=== PATIENT | male | born 1935 | race Caucasian/White ===

== ENCOUNTER 2018-05-02 09:02 | Observation (INO) ==
--- NOTE | 2018-05-02 10:16 | Diag Imaging Result Doc PS360 ---
EXAM: CT HEAD W/O CONTRAST 05/02/2018 HISTORY: fall TECHNIQUE: This exam was performed using automated exposure control, adjustment of mA or kV according to patient size, and/or use of iterative reconstruction technique. COMMENT: There are calcifications in the vertebral and internal carotid arteries bilaterally. There is no evidence of mass effect, bleed, abnormal extra-axial fluid collection, or hydrocephalus. There is a periventricular lucency in the subependymal white matter of the right frontal lobe which was also present at the time the previous study of 08/03/2014. There is mucus retention cyst formation in the maxillary sinuses bilaterally. Otherwise the visualized paranasal sinuses are clear. The calvarium is intact. There is a small scalp hematoma in the posterior left frontal region, and another laterally on the right side over the parietal bone. IMPRESSION: No evidence of acute intracranial disease. Bilateral scalp hematomata. The findings were discussed with Carlos Jeong MD at 05/02/2018 10:13 AM. Electronically signed by Tung Morales 05/02/2018 10:13 AM
[2018-05-02 13:16] LABS: BASO# 0.02 X1000 (0.0-0.2); BASO% 0.3 % (0.0-0.8); EOS% 1.3 % (0.0-10.0); HEMATOCRIT 30.4 % (42.0-52.0); HEMOGLOBIN 9.9 g/dL (14.0-18.0); LYMPH# 0.69 X1000 (1.2-3.4); LYMPH% 9.2 % (20.5-51.1); MCH 30.6 PG (27-31); MCHC 32.6 g/dL (33-37); MCV 93.8 FL (81-99); MONO# 0.35 X1000 (0.11-0.59); MONO% 4.7 % (1.7-9.3); MPV 11.9 FL (7.4-10.4); NEUT# 6.36 X1000 (1.4-6.5); NEUT% 84.5 % (42.2-75.2); PLT 163 X1000 (130-400); RBC 3.24 XMIL (4.7-6.1); RDW 13.5 % (11.5-14.5); WBC 7.52 X1000 (4.8-10.8)
[2018-05-02 13:27] LABS: INR 1.03; PROTIME 14.3 Seconds (11.0-16.0)
[2018-05-02 13:28] LABS: PTT 27.1 Seconds (22.3-41.8)
[2018-05-02 13:32] LABS: CALCIUM 8.7 mg/dL (8.8-10.2); CREATININE 2.1 mg/dL (0.7-1.2); POTASSIUM 4.2 mmol/L (3.5-5.1); TOTAL BILIRUBIN 0.44 mg/dL (0.20-1.00)
--- NOTE | 2018-05-02 14:55 | Diag Imaging Result Doc PS360 ---
EXAM: CHEST-2 VIEWS 05/02/2018 HISTORY: elevated trop TECHNIQUE: Two views the chest COMMENT: There is no evidence of acute cardiac or pulmonary disease. There is a pacemaker on the right. Otherwise there has been no significant change in the appearance of the chest since 08/03/2014. IMPRESSION: No evidence of acute disease. Electronically signed by Tung Morales 05/02/2018 2:53 PM
[2018-05-02] MEDS ORDERED: TYLENOL PO PRN (16:25)
[2018-05-02] MEDS ORDERED: ZOFRAN IV PRN (16:25)
--- NOTE | 2018-05-02 17:10 | PROVIDER DOCUMENTATION ---
This chart was entered by Dorita Miranda Scribe, acting as scribe for Ivelisse Sanz MD. HPI-Head Injury - General Chief Complaint: Fall Stated Complaint: FALL Time Seen by Provider: 05/02/18 12:07 Source: patient Allergies/Adverse Reactions: Patient Allergies Allergy/AdvReac Type Severity Reaction Status Date / Time simvastatin [From Zocor] Allergy "Protein Verified 05/02/18 13:10 weeping out of the muscle" per patient. Home Medications: Home Medication List Medication Instructions Recorded Confirmed Last Taken Type Allopurinol 300 mg PO DAILY 08/03/14 05/02/18 05/01/18 History Alprazolam [Xanax] 0.25 mg PO QHS 08/03/14 05/02/18 05/01/18 History Aspirin 81 mg PO DAILY 08/03/14 05/02/18 05/01/18 History Atorvastatin Calcium [Lipitor] 40 mg PO QHS 08/03/14 05/02/18 05/01/18 History Glipizide E.r. [Glucotrol Xl] 5 mg PO DAILY 08/03/14 05/02/18 05/01/18 History Terazosin [Hytrin] 1 tab PO DAILY 08/22/14 05/02/18 05/01/18 History Valsartan 320 mg PO DAILY 08/05/17 05/02/18 05/01/18 History Hydrocodone/APAP 7.5 mg/325 mg 1 each PO Q4H PRN #12 tablet 08/20/17 05/02/18 Rx [[place]-7.5] Sulfamethoxazole/Tmp D.s. [Septra 1 each PO BID #14 tablet 08/20/17 05/02/1809/12 Rx Ds] - History of Present Illness-Head Injury Nature of Presenting Problem: 82yom with hx CABG, CVA (with R-sided weakness resulting), colon cancer, and pacemaker c/o headache, feeling tired, and drowsiness post-head injury since this morning. He reports feeling generalized weakness and feeling sick" this morning and fell and hit his head on the countertop. He reports loc for approximately 4-5 minutes. He denies fever, chills, nausea, vomiting, diarrhea, cp, and sob. The patient's is at bedside. Head Injury Location: reports: other (L forehead) Other injuries associated with incident:: reports: none Quality of Pain: reports: aching Severity: reports: mild Onset/Duration: reports: this morning Timing: reports: still present, constant Method of Injury: reports: fell Any recent trauma/injury?: reports: minor Loss of Consciousness: prolonged (minutes) Modifying Factors: improves with: nothing Injury Associated Symptoms: reports: headaches. denies: chest pain, nausea, shortness of breath, vomiting Locality of Occurance: Home Similar Symptoms Previously?: No Recently seen or treated by another doctor?: No Review of Systems - Adult - REVIEW OF SYSTEMS - ADULT Constitutional: denies: chills, fever Eyes: denies: discharge, dry eyes Ears, Nose, Mouth & Throat: denies: ear discharge, ear pain Cardiovascular: denies: chest pain, palpitations Respiratory: denies: cough, shortness of breath Gastrointestinal: denies: abdominal pain, diarrhea, nausea, vomiting Genitourinary: denies: dysuria, hematuria Musculoskeletal: denies: back pain, neck pain Integumentary: reports: no symptoms reported Neurological: reports: headache/migraines. denies: dizziness/vertigo Psychiatric: reports: no symptoms reported Endocrine: reports: no symptoms reported Hematologic/Lymphatic: reports: no symptoms reported Allergic/Immunologic: reports: no symptoms reported All Other Systems: Reviewed and Negative Past History - Adult - PAST MEDICAL HISTORY-ADULT Review of Records: reports: Old Records Reviewed, Nursing Assessment Review, Medications Reviewed Cardiovascular: reports: HTN, hyperlipidemia Gastrointestinal: reports: cancer (colon) Genitourinary: reports: kidney stones Neurological: reports: CVA Endocrine/Immune: reports: Diabetes - PRIOR SURGERIES/PROCEDURES Surgical/Procedure History: reports: CABG, tonsillectomy, orthopedic (extremity ) (R knee), other (bypass Sx, colon Sx) - IMMUNIZATION STATUS Childhood Immunizations: UTD Flu Vaccine: UTD - FAMILY HISTORY Family History: reviewed, not pertinent - SOCIAL HISTORY Smoking: non-smoker Substance Use: denies Living Situation: family Physical Exam- Neurological - Physical Exam-Neuro Initial Vital Signs Reviewed: Yes General Appearance: alert, no apparent distress Eye Exam: bilateral eye: normal inspection (2mm ), PERRL, EOMI HENMT: moist mucous membranes, normal ENT inspection Head Injury: ecchymosis, tenderness, other (hematoma L forehead, dried blood on forehead). negative: active bleeding, Sherman's Sign Neck: non-tender, supple Respiratory: lungs clear, normal breath sounds Cardiovascular: regular rate, rhythm, no murmur Abdominal Exam: non tender, soft Extremity: non-tender, no pedal edema, other (R-sided weakness from previous CVA ) marketing director Exam: normal speech, PERRL, other (pt is hard of hearing, pt requires hearing aids) Neurologic: grossly normal, other (R-sided weakness, previous CVA) Integumentary: normal color, warm/dry Psych/Mental Status: normal mood/affect, normal thought content, normal thought process, oriented x 3 - Glascow Coma Scale Best Eye Response: (4) open spontaneously Best Verbal Response: (5) oriented Best Motor Response: (6) obeys commands Total Glascow Score: 15 Progress - PLAN OF CARE/RESULTS Progress/Plan/Lab Results: Vital Signs - 8 hr 05/02/18 09:31 Temperature 98.3 F Pulse Rate 93 H Respiratory Rate 18 Blood Pressure 140/72 O2 Sat by Pulse Oximetry 100 Laboratory Results - last 24 hr 05/02/18 05/02/18 05/02/18 10:32 10:32 10:32 WBC 7.52 RBC 3.24 L Hgb 9.9 L Hct 30.4 L MCV 93.8 MCH 30.6 MCHC 32.6 L RDW Std Deviation 13.5 Plt Count 163 MPV 11.9 H Immature Gran % (Auto) 0.0 Neut % (Auto) 84.5 H Lymph % (Auto) 9.2 L [place] % (Auto) 4.7 Eos % (Auto) 1.3 Baso % (Auto) 0.3 Immature Gran # (Auto) 0.00 Neut # (Auto) 6.36 Lymph # (Auto) 0.69 L [place] # (Auto) 0.35 Eos # (Auto) 0.10 Baso # (Auto) 0.02 PT 14.3 INR 1.03 PTT (Actin FS) 27.1 Sodium 140 Potassium 4.2 Chloride 105 Carbon Dioxide 21 L Anion Gap 14 BUN 35 H Creatinine 2.1 H Estimated GFR/1.73 m2 31 BUN/Creatinine Ratio 17 Glucose 175 H POC Glucose Calculated Osmolality 292 Calcium 8.7 L Total Bilirubin 0.44 AST 16 ALT 10 Alkaline Phosphatase 75 Creatine Kinase 118 Troponin T Hej-E-Oibdjvscwxp Pept Total Protein 6.0 L Albumin 4.0 Globulin 2.0 Albumin/Globulin Ratio 2.0 05/02/18 05/02/18 05/02/18 10:32 10:32 12:53 WBC RBC Hgb Hct MCV MCH MCHC RDW Std Deviation Plt Count MPV Immature Gran % (Auto) Neut % (Auto) Lymph % (Auto) [place] % (Auto) Eos % (Auto) Baso % (Auto) Immature Gran # (Auto) Neut # (Auto) Lymph # (Auto) [place] # (Auto) Eos # (Auto) Baso # (Auto) PT INR PTT (Actin FS) Sodium Potassium Chloride Carbon Dioxide Anion Gap BUN Creatinine Estimated GFR/1.73 m2 BUN/Creatinine Ratio Glucose POC Glucose 152 H D Calculated Osmolality Calcium Total Bilirubin AST ALT Alkaline Phosphatase Creatine Kinase Troponin T 0.191 H Dwl-U-Timpqrtubxj Pept 1651 H Total Protein Albumin Globulin Albumin/Globulin Ratio 05/02/18 15:30 WBC RBC Hgb Hct MCV MCH MCHC RDW Std Deviation Plt Count MPV Immature Gran % (Auto) Neut % (Auto) Lymph % (Auto) [place] % (Auto) Eos % (Auto) Baso % (Auto) Immature Gran # (Auto) Neut # (Auto) Lymph # (Auto) [place] # (Auto) Eos # (Auto) Baso # (Auto) PT INR PTT (Actin FS) Sodium Potassium Chloride Carbon Dioxide Anion Gap BUN Creatinine Estimated GFR/1.73 m2 BUN/Creatinine Ratio Glucose POC Glucose 140 H Calculated Osmolality Calcium Total Bilirubin AST ALT Alkaline Phosphatase Creatine Kinase Troponin T Tmz-R-Bakhtwxtdxx Pept Total Protein Albumin Globulin Albumin/Globulin Ratio Orders Category Date Time Status Admit - [facility] Routine AdmDCTranf 05/02/18 16:25 Active Activity - Bedrest with BSC ORDERED Care 05/02/18 16:25 Active Activity - Up with Assistance ORDERED Care 05/02/18 16:25 Active Apply Mechanical Device [QM] ORDERED Care 05/02/18 16:25 Active Cardiac Monitoring DIRECTED Care 05/02/18 12:56 Inactive Finger Stick Blood Sugar (ED) DIRECTED Care 05/02/18 12:56 Completed Intake and Output-Strict ORDERED Care 05/02/18 16:25 Active Orthostatic Vital Signs NOW Care 05/02/18 16:25 Active Saline Loc NOW Care 05/02/18 12:56 Inactive Vital Signs Order Q 8-HR ASSESS Care 05/02/18 16:25 Active Z-Document. for Tele Applied ORDERED Care 05/02/18 16:25 Active Heart Healthy Diet Diet 05/02/18 16:[address] HEAD W/O CONTRAST [CT] Stat Exams 05/02/18 09:28 Completed XRAY HIP UNILATERAL RT [RAD] Routine Exams 05/02/18 16:25 Taken cxr [CHEST-2 VIEWS] [RAD] Stat Exams 05/02/18 14:31 Completed CBC WITH DIFF [HEME] Routine Lab 05/03/18 06:00 Ordered CBC WITH ELECTRONIC DIFF [HEME] Stat Lab 05/02/18 10:32 Completed CK PROFILE [SP CHEM] Q6HR Lab 05/02/18 20:00 Ordered CK PROFILE [SP CHEM] Q6HR Lab 05/03/18 02:00 Ordered CK PROFILE [SP CHEM] Stat Lab 05/02/18 10:32 Completed COMPREHENSIVE METABOLIC PANEL [CHEM] Routine Lab 05/03/18 06:00 Ordered COMPREHENSIVE METABOLIC PANEL [CHEM] Stat Lab 05/02/18 10:32 Completed PRO B-NATRIURETIC PEPTIDE Stat Lab 05/02/18 10:32 Completed PROTIME WITH INR [COAG] Stat Lab 05/02/18 10:32 Completed PTT [COAG] Stat Lab 05/02/18 10:32 Completed TROPONIN T Stat Lab 05/02/18 10:32 Completed TROPONIN T Stat Lab 05/02/18 16:53 Received TSH Routine Lab 05/03/18 06:00 Ordered 0.9% Sodium Chloride Inj [Ns] 1,000 ml Med 05/02/18 16:25 Active IV 75 mls/hr ATORVAstatin [Lipitor] Med 05/02/18 21:00 Active 40 mg PO QHS Acetaminophen [Tylenol] Med 05/02/18 16:25 Active 650 mg PO Q6H PRN PRN Allopurinol [Zyloprim] Med 05/03/18 09:00 Active 300 mg PO DAILY Aspirin Med 05/03/18 09:00 Active 81 mg PO DAILY Hydrocodone/APAP 7.5 mg/325 mg [[place]-7.5] Med 05/02/18 16:25 Active 1 each PO Q4H PRN PRN Ondansetron [Zofran] Med 05/02/18 16:25 Active 4 mg IV Q4H PRN PRN Terazosin [Hytrin] Med 05/03/18 09:00 Active 5 mg PO DAILY Valsartan [Diovan] Med 05/03/18 09:00 Active 320 mg PO DAILY Telemetry [OM.EQ] Routine Oth 05/02/18 16:25 Active Carotid Ultrasound Routine Ther 05/02/18 16:25 Ordered EKG [EKG] Stat Ther 05/02/18 12:56 Ordered Echo Spec/Color Dop W/O Contra Routine Ther 05/02/18 16:25 Ordered Physical Therapy Eval/Treatment [OM.PT] Routine Ther 05/02/18 16:25 Active Transfer/Admit Order [TRANSFER] Routine Transfer 05/02/18 15:35 Completed Result Diagrams: 05/02/18 10:32 05/02/18 10:32 - XRAY 1 XRAY Study: Chest Impression: Normal (COMMENT: There is no evidence of acute cardiac or pulmonary disease. There is a pacemaker on the right. Otherwise there has been no significant change in the appearance of the chest since 08/03/2014. IMPRESSION : No evidence of acute disease.) - CT/MRI 1 CT Study: Head Impression: Abnormal (COMMENT: There are calcifications in the vertebral and internal carotid arteries bilaterally. There is no evidence of mass effect, bleed, abnormal extra-axial fluid collection, or hydrocephalus. There is a periventricular lucency in the subependymal white matter of the right frontal lobe which was also present at the time the previous study of 08/03/2014. There is mucus retention cyst formation in the maxillary sinuses bilaterally. Otherwise the visualized paranasal sinuses are clear. The calvarium is intact. There is a small scalp hematoma in the posterior left frontal region, and another laterally on the right side over the parietal bone. IMPRESSION: No evidence of acute intracranial disease. Bilateral scalp hematomata. The findings were discussed with Carlos Jeong MD at 05/02/2018 10:13 AM.) - CONSULTS/PCP/HOSPITALIST Notification #1 *Consult/PCP/Hospitalist*: MARIA FERNANDA Centeno Time Discussed: 14:23 Consult Disposition: Admit Departure - Departure Date of Disposition Decision: 05/02/18 Time of Disposition Decision: 17:10 DIAGNOSIS: Acute kidney injury, Troponin level elevated, Status post fall, Weakness Scalp hematoma Qualifiers: Encounter type: initial encounter Qualified Code(s): S00.03XA - Contusion of scalp, initial encounter Disposition: HOME 01 Certified Medical Emergency: Emergent Condition: Stable - Critical Care Note This patient required my direct & personal management of CC.: No Attestation - Physician/ FÁTIMA Attestation Patient care was provided by Advanced Practice Provider:: No The physician spent face to face time with patient:: Yes Advanced Practice Provider documentation review:: Supervising physician onsite and consulted in the evaluation and care of this patient. The physician did have a face to face encounter with the patient. This chart was documented by the indicated scribe, (Dorita Miranda, George) and accurately reflects the services I performed and decisions made by me, Ivelisse Sanz MD, as attested by the provider's signature.
--- NOTE | 2018-05-02 17:15 | Diag Imaging Result Doc PS360 ---
EXAM: XRAY HIP UNILATERAL RT 05/02/2018 HISTORY: fall. hip pain TECHNIQUE: Right hip two views COMMENT: There is no evidence of fracture or dislocation. The joint spaces well-maintained. There is some sclerosis of the superior cortex of the femoral head. There are no previous studies. IMPRESSION: No evidence of acute bony disease. Electronically signed by Tung Morales 05/02/2018 5:12 PM
--- NOTE | 2018-05-02 17:41 | HISTORY AND PHYSICAL ---
PRIMARY CARE PROVIDER: Dr. Blayne Reyes. PRIMARY HAND MARKER: Dr. Damian Clemons. CHIEF COMPLAINT: Passed out. HISTORY OF PRESENT ILLNESS: Mr. Carlos Michel is an 82-year-old male with a medical history of sick sinus syndrome with permanent pacemaker, atrial fibrillation on aspirin therapy, coronary artery disease with CABG x3 in 2009, stroke about 25 to 26 years ago, which left him paralyzed on his right side, and history of colon cancer, who presents with complaints of passing out. Around 0830 this morning, he states he was standing at the sink, had his coffee ready and his cereal ready, he was moving it down the counter when he passed out. He did not have any presyncopal type symptoms. He states he just passed out and his , who is at the bedside, did not witness this but states that he has really not started coming around until this afternoon. He was brought via EMS. He states over the last couple of days he has been good, no bad days. He occasionally takes pain medicine for his chronic back pain due to an L4-L5 back fracture. He had no had any pain medicine since yesterday morning, because he only takes it occasionally. Unfortunately, when he fell he apparently hit the front of his head on the side and in the back where he has developed two hematomas, but no open wounds. He is oriented. Will admit him to the medical floor. Will do a workup, monitor for any other symptoms. He does have an elevated troponin but denies any chest pain. His proBNP is also slightly elevated. Chest x-ray is clear. PAST MEDICAL HISTORY: 1. Coronary artery disease. No myocardial infarction. Had CABG x3 in 2009. 2. Chronic atrial fibrillation or paroxysmal, only on aspirin therapy. 3. Sick sinus syndrome with permanent pacemaker. 4. History of left cerebral stroke with right-sided hemiparalysis around 25 to 26 years ago. 5. History of colon cancer with colon resection, did not have to have chemo or radiation. 6. BPH. Has had a TURP. 7. Hyperlipidemia. 8. Hypertension. 9. Spermatocele in the past. 10.Anxiety and depression. 11.Renal artery stenosis with renal artery stent placed in 2018. 12.Back fracture, L4 to L5, does not want to have surgery on that, and has chronic pain from that with occasional pain medication use. 13.CKD, stage 3. 14.Diabetes mellitus, type 2. PAST SURGICAL HISTORY: 1. Colon resection for colon cancer in 2011, had 12 to 14 inches removed. 2. Coronary artery bypass grafting x3. 3. TURP. 4. Right renal artery stenosis with renal artery stent placed this summer in 2017. 5. Right elbow crush injury with surgical repair. 6. Permanent pacemaker with interrogation that was performed around two to three months ago. Family unaware of which company. SOCIAL HISTORY: Denies tobacco, alcohol, or illicit drug use. Lives at home with his . FAMILY HISTORY: Denies. ALLERGIES: Zocor causes muscle weakness. HOME MEDICATIONS: 1. Xanax 0.25 mg p.o. nightly. 2. Lipitor 40 mg p.o. nightly. 3. Allopurinol 300 mg p.o. daily. 4. Aspirin 81 mg p.o. daily. 5. Glucotrol 5 mg p.o. daily. 6. Hytrin 5 mg p.o. daily. 7. Valsartan 325 mg p.o. daily. 8. [place] 7.5 one tablet p.o. every four hours p.r.n. 9. He used to be on Septra for two weeks back in July of 2017. REVIEW OF SYSTEMS: A 14-point review of systems are complete, and all were negative except for those mentioned in the above HPI. He denies any headache, chest pain, or shortness of breath. PHYSICAL EXAMINATION: VITAL SIGNS: Temperature is 98.3, heart rate 93, respiratory rate 18, blood pressure 140/72, O2 saturation is 100% on room air. Height 5 feet 11 inches tall, 165 pounds, BMI is 23. GENERAL: Mr. Carlos Michel is an 82-year-old male. He is in no acute distress. He is able to answer questions appropriately. HEENT: He has left frontal scalp hematoma. He has right occipital scalp hematoma. Mucous membranes are moist. His pupils are equal, round, and reactive to light. Extraocular movements are intact. Normocephalic. NECK: Trachea midline. CARDIOVASCULAR: S1, S2. Irregularly irregular rate and rhythm. No murmurs, rubs or gallops. No lower extremity edema. Plus 2 dorsalis and radial pulses. No JVD and carotid bruits. PULMONARY: Clear to auscultation with bilateral breath sounds. No accessory muscle use or work of breathing noted. GASTROINTESTINAL: Soft, nontender, nondistended. Positive bowel sounds x4. EXTREMITIES: Moves left upper and lower extremity without difficulty. Right hemiparesis noted on the right upper and lower extremity. NEUROLOGICAL: Alert and oriented x3. Follows commands. Sensory is intact. SKIN: Warm, dry and intact except for two hematomas noted on the head. LABORATORY DATA: White blood cells 7,000, hemoglobin 9, hematocrit 30, platelet count 163. INR is 1.03. PTT is 27.1. Sodium is 140, potassium 4.2, BUN is 35, creatinine 2.1, glucose 175, calcium 8.7, bilirubin 0.44, AST is 16, ALT is 10. CK 118. Troponin 0.191. proBNP 1651. Albumin is 4.0. IMAGING: Head CT with no evidence of acute intracranial disease. Bilateral scalp hematomas noted. Chest x-ray with no evidence of acute disease. ASSESSMENT AND PLAN: 1. Syncopal episode with scalp hematomas x2. Will have his pacemaker interrogated. He has not had any problems with dizziness over the last several days. States he has actually been feeling pretty good. He will have an echocardiogram. His head CT was negative for any intracranial problems. Will monitor him overnight and will do serial cardiac enzymes because he did have an elevated troponin, but denies chest pain. Will repeat a carotid ultrasound. 2. Chronic kidney disease, stage 3. No changes. Stable. 3. History of stroke with right-sided hemiparesis. 4. Hyperlipidemia. Continue home medications. 5. Hypertension. Continue home medications. 6. Diabetes mellitus, type 2. Will do patterned blood glucose, sliding scale insulin. 7. Anxiety. Will continue his Xanax at night. 8. Renal artery stenosis. Chronic kidney disease, stage 3. Stable. 9. Deep venous thrombosis prophylaxis. Sequential compression devices. Dictated by MARIA FERNANDA Adams for Jett Block MD cc: MARIA FERNANDA Adams
--- NOTE | 2018-05-02 17:48 | ED EKG INTERP ---
This chart was entered by Dorita Miranda Scribe, acting as scribe for Ivelisse Sanz MD. EKG Interpretation - EKG Time of EKG reading by physician:: 15:40 EKG Read and Signed by:: Ivelisse Sanz EKG Interpretation (*Must complete 3 of following elements*): Abnormal Rate: 61 Rhythm: Atrial-paced rhythm QRS: normal ST Wave: non-specific ST changes Attestation - Physician/ FÁTIMA Attestation Patient care was provided by Advanced Practice Provider:: No The physician spent face to face time with patient:: Yes Advanced Practice Provider documentation review:: Supervising physician onsite and consulted in the evaluation and care of this patient. The physician did have a face to face encounter with the patient. This chart was documented by the indicated scribe, (Dorita Miranda Scribe) and accurately reflects the services I performed and decisions made by me, Ivelisse Sanz MD, as attested by the provider's signature.
[2018-05-02] MEDS: NS 1,000 ML IV SCH ×2 (18:11→22:23)
[2018-05-02 20:52] LABS: CK INDEX 9.5 (0.0-2.5); CK-MB 24.91 ng/mL (0.0-5.0)
[2018-05-02] MEDS ORDERED: LIPITOR PO SCH (21:00)
[2018-05-02] MEDS: HUMULIN R SUBQ SCH (21:44)
[2018-05-02] MEDS: NORCO-7.5 PO PRN (21:44)
[2018-05-03 04:10] LABS: CK INDEX 7.6 (0.0-2.5); CK-MB 19.31 ng/mL (0.0-5.0)
[2018-05-03 05:28] LABS: BASO# 0.01 X1000 (0.0-0.2); BASO% 0.2 % (0.0-0.8); EOS# 0.08 X1000 (0.0-0.7); EOS% 1.3 % (0.0-10.0); HEMATOCRIT 28.4 % (42.0-52.0); HEMOGLOBIN 8.9 g/dL (14.0-18.0); LYMPH# 1.18 X1000 (1.2-3.4); LYMPH% 19.1 % (20.5-51.1); MCH 29.6 PG (27-31); MCHC 31.3 g/dL (33-37); MCV 94.4 FL (81-99); MONO# 0.54 X1000 (0.11-0.59); MONO% 8.8 % (1.7-9.3); MPV 11.4 FL (7.4-10.4); NEUT# 4.36 X1000 (1.4-6.5); NEUT% 70.6 % (42.2-75.2); PLT 164 X1000 (130-400); RBC 3.01 XMIL (4.7-6.1); RDW 13.3 % (11.5-14.5); WBC 6.17 X1000 (4.8-10.8)
[2018-05-03] MEDS: NS 1,000 ML IV SCH (05:35)
[2018-05-03 05:54] LABS: HEMOGLOBIN A1C 5.8 % (4.8-6.0)
[2018-05-03 05:56] LABS: ALB/GLOB RATIO 1.4; ALBUMIN 3.4 g/dL (3.5-5.0); CREATININE 1.7 mg/dL (0.7-1.2); POTASSIUM 3.7 mmol/L (3.5-5.1); TOTAL BILIRUBIN 0.41 mg/dL (0.20-1.00); TOTAL PROTEIN 5.8 g/dL (6.3-8.3)
[2018-05-03] MEDS: HUMULIN R SUBQ SCH ×3 (06:10→15:50)
--- NOTE | 2018-05-03 07:35 | EKG Report ---
Test Performed on : 05/02/2018 3:37:33 PM Test Reason : arrhymias Blood Pressure : / mmHG Vent. Rate : 061 BPM Atrial Rate : 061 BPM P-R Int : 270 ms QRS Dur : 078 ms QT Int : 402 ms P-R-T Axes : 031 031 -55 degrees QTc Int : 404 ms Atrial-paced rhythm with prolonged AV conduction ST & T wave abnormality, consider inferior ischemia ST & T wave abnormality, consider anterolateral ischemia Abnormal ECG When compared with ECG of 25-DEC-2014 06:46, Electronic atrial pacemaker has replaced Electronic ventricular pacemaker Unconfirmed Result
[2018-05-03] MEDS ORDERED: MAGNESIUM SULFATE 2 GM/S.W.I. 2 GM/50 ML IVPB IV ONE (08:57)
[2018-05-03] MEDS ORDERED: LOPRESSOR IV ONE (08:58)
[2018-05-03] MEDS ORDERED: LOPRESSOR PO SCH (09:00)
[2018-05-03] MEDS ORDERED: DIOVAN PO SCH (09:00)
[2018-05-03] MEDS ORDERED: ZYLOPRIM PO SCH (09:00)
[2018-05-03] MEDS ORDERED: ASPIRIN PO SCH (09:00)
[2018-05-03] MEDS ORDERED: NITROGLYCERIN 0.4 MG/HR PATCH TD SCH (09:00)
[2018-05-03] MEDS ORDERED: HYTRIN PO SCH (09:00)
[2018-05-03] MEDS ORDERED: LIPITOR PO ONE (09:10)
[2018-05-03] MEDS ORDERED: LOVENOX SUBQ SCH (09:15)
[2018-05-03] MEDS: LOPRESSOR PO SCH ×2 (10:01→15:50)
--- NOTE | 2018-05-03 11:44 | CONSULTATION ---
DATE OF CONSULTATION: 05/03/2018 IMPRESSION: 1. Syncope probably cardiac in origin and likely abrupt arrhythmia. 2. Laboratory data suggests small non-ST elevation myocardial infarction. 3. Telemetry monitoring has shown an episode of polymorphic ventricular tachycardia. I suspect this is very likely the underlying etiology for his syncopal episode. 4. Atherosclerotic coronary disease. Patient is status post coronary bypass grafting in 2009 with left internal mammary artery graft to left anterior descending coronary, saphenous vein graft to first obtuse marginal, and saphenous vein graft to 2nd obtuse marginal. The distal right coronary was reported to be severely diseased and collateralized. 5. Previous atrial fibrillation good number years of ago. No recent atrial fibrillation. 6. Sinus node dysfunction. Patient is status post permanent pacemaker with a UltiZentronic [id number] Advisa MRI 12/11/2014. 7. Diabetes mellitus type 2 for at least 20 years with associated peripheral neuropathy. 8. Chronic kidney disease. 9. Hypertension. 10. Hyperlipidemia. 11. 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 12. Atherosclerotic carotid disease. 13. History of colon cancer and previous partial colectomy. RECOMMENDATIONS: 1. Check magnesium level and supplement magnesium. 2. Initiate maximal anti-ischemic regimen with beta connie, nitrates and Lovenox. 3. Interrogate pacemaker. However I suspect this is very likely due to polymorphic ventricular tachycardia provoked by myocardial ischemia. 4. Echocardiography. 5. Favor transfer to [facility] for further evaluation with cardiac catheterization, possible coronary intervention, and possible need for electrophysiology consultation. This was discussed with the patient and his and he wished to proceed with transfer. Hospitalist has been contacted and arrangements are being made for transfer as soon as bed is available. HISTORY: This 82-year-old white male with past history of remote cerebrovascular accident more than 20 years ago, coronary bypass surgery in 2009, previous atrial fibrillation several years ago without recurrence, sinus node dysfunction requiring permanent pacemaker, type 2 diabetes mellitus longstanding, hypertension, and hyperlipidemia. Was admitted through the emergency room yesterday evening after episode of syncope. Troponin demonstrated mild rise since admission. Cardiology was consulted. Patient relates that yesterday morning he got up as is his usual habit and went to the kitchen. He was standing in the kitchen and experienced sudden loss of consciousness. He relates only very momentary feeling that something was wrong after which he passed out and fell to the floor hitting his head. He was found on the floor in the kitchen breathing spontaneously by his . EMS was summoned. He was brought to the emergency room. He has awakened. He relates there has been no chest pain whatsoever nor any palpitations. He has not had any angina in years. He has had no recent problems with dyspnea or orthopnea. He presently reports feeling fine. In the emergency room he had head CT scan noncontrast which was negative. PAST MEDICAL HISTORY: 1. Atherosclerotic coronary disease with coronary bypass grafting in 2009 as outlined above. 2. Previous atrial fibrillation in the past. Patient currently in atrial paced rhythm. 3. Previous cerebrovascular accident more than 20 years ago with right-sided hemiparesis. 4. Sinus node dysfunction and permanent pacemaker with Medtronic device. 5. Colon cancer with previous partial colectomy. 6. Hypertension. 7. Hyperlipidemia. 8. Renal artery stenosis. Patient is status post renal artery stent 2018. 9. Anxiety/depression. 10. Chronic kidney disease stage 3. 11. Diabetes mellitus type 2. Longstanding with associated mild peripheral neuropathy. 12. History of lower back fracture managed conservatively. Patient does have some chronic pain related to this. PAST SURGICAL HISTORY: 1. Previous coronary bypass grafting 2009. 2. Partial colon resection 2011 for colon cancer. 3. Transurethral resection of prostate. 4. Right renal artery stent in 2018. 5. Right elbow fracture with surgical repair and permanent pacemaker with Medtronic device. 6. Allergic or intolerant to Zocor which causes myalgias. MEDICATIONS PRIOR TO ADMISSION: As listed. SOCIAL HISTORY: He does not smoke or use alcohol. He is . He lives with his . FAMILY HISTORY: Negative for premature coronary disease. REVIEW OF SYSTEMS: Pulmonary: Negative. Gastrointestinal: Negative. Constitutional: Negative. The remainder of the review of systems negative/noncontributory beyond history of present illness with 14 total systems reviewed. PHYSICAL EXAMINATION: General: This is a pleasant elderly white male in no distress on room air. Vital signs: Blood pressure 152/52, heart rate 62 and regular. Oxygen saturation 96% on room air. HEENT: Extraocular movements intact. Mucous membranes are moist. Neck: Supple without jugular venous distention. There are no carotid bruits. Chest: Clear to auscultation. Cardiac Exam: Reveals a regular rate and rhythm without appreciable murmur or gallop. Abdomen: Soft, nontender. Bowel sounds are normal. Extremities: Without edema. Neurologic Exam: Remarkable for right-sided hemiparesis. Speech is fluent. PERTINENT DATA: Twelve-lead EKG demonstrates atrial paced rhythm and ST and T-wave abnormality, consider anterolateral ischemia. LABORATORY DATA: Includes a white blood cell count 6.17, hematocrit 28.4, hemoglobin 8.9, platelet count 164,000, PT 14.3, INR 1.03, PTT 27.1, sodium 142, potassium 3.7, chloride 108, carbon dioxide 21, BUN 29, creatinine 1.7. Magnesium 2.0, initial CPK 261; followup CPK 253. Magnesium 2.0, initial CPK 118 with followup CPK 261 and 253 respectively. Initial CPK MB 24.91 with followup CPK MB 19.31. Initial CPK MB index 9.5 with followup CPK index in MB index 7.6. Initial troponin T 0.191 with followup troponin 30.529 and 0.821 respectively. Pro B-natriuretic peptide level 1651, triglycerides 102, cholesterol 126, LDL cholesterol direct 72, HDL cholesterol 42, TSH 1.79. Chest x-ray shows no acute infiltrates and mild cardiomegaly. cc: Damian Clemons MD
[2018-05-03] MEDS: NORCO-7.5 PO PRN (14:05)
--- NOTE | 2018-05-03 15:12 | ECHO REPORT ---
ORDER DATE: 05/02/2018 INDICATION: Aortic stenosis, coronary disease, bypass, history of atrial fibrillation. FINDINGS: 1. Right atrium is mildly enlarged at 4 cm. Linear echodensity consistent with device leads is noted the right heart chambers. 2. Moderate tricuspid regurgitation. RV systolic pressure of 35. 3. Normal RV size and systolic function. 4. Mild pulmonic insufficiency. 5. Mild left atrial enlargement at 4.2 cm. 6. No mitral valve prolapse. Qxmd-ty-hweakopv mitral regurgitation. This is somewhat eccentric jet. Mild mitral annular calcification. No evidence of stenosis. 7. Normal LV size, end-diastolic dimension of 5 cm. Normal wall thicknesses with a posterior and interventricular septal wall thickness of 1.1 cm each. Normal LV systolic function. Estimated EF is 55%. Septal wall motion consistent with either a paced rhythm or intraventricular conduction delay is noted. 8. Aortic valve is somewhat calcified with restriction in motion consistent with mild stenosis. Peak gradient across valve is 22 with a mean of 14. The valve area is 1.8 to 1.9 cm2. This appears consistent with the study in 2017. Mild aortic insufficiency. 9. Aorta appears normal in visualized segments. 10. No pericardial effusion seen. cc: Dash Phelps MD
[2018-05-03 15:25] VITALS: BP 114/43
[2018-05-03] MEDS ORDERED: LIPITOR PO SCH (21:00)
--- NOTE | 2018-05-04 05:38 | DISCHARGE SUMMARY ---
ADMISSION DATE: 05/02/2018 DISCHARGE DATE: 05/03/2018 PRINCIPAL DIAGNOSIS: 1. Syncope probably secondary to arrhythmia/sqj-SI-byrqeiqis myocardial infarction. 2. Moy-ZK-iklufmddm myocardial infarction coronary artery disease. 3. Chronic atrial fibrillation. 4. Sick sinus syndrome with permanent pacemaker. 5. History of cerebrovascular accident. 6. History of colon cancer with colon resection. 7. History of benign prostatic hypertrophy. 8. Hyperlipidemia. 9. Hypertension. 10. Anxiety disorder with depression. 11. Renal artery stenosis. 12. Back fractures of L4-L5. 13. Chronic kidney disease. 14. Diabetes mellitus type 2. DISCHARGE MEDICATIONS: 1. Metoprolol 25 mg every 6 hours. 2. Zofran 4 mg as directed. 3. Nitroglycerin transdermal patch daily. 4. Atorvastatin 40 mg p.o. daily. 5. Aspirin 81 mg p.o. daily. 6. Xanax 0.25 mg p.o. at bedtime. 7. Allopurinol 300 mg p.o. daily. 8. Glipizide 5 mg p.o. daily. 9. Terazosin 1 tab p.o. daily. 10. Valsartan 320 mg p.o. daily. 11. [place] 7.5 every 4 hours as needed. CONSULTATIONS DONE DURING THIS HOSPITAL STAY: Dr. Damian Clemons, Cardiology. PROCEDURES DONE DURING THIS HOSPITAL STAY: Head CT 05/02/2018. HOSPITAL COURSE: Mr. Carlos Michel is an 82-year-old male with a medical history of sick sinus syndrome with permanent pacemaker, atrial fibrillation, coronary artery disease with CABG x3, history of CVA with left-sided dialysis, and also a history of colon cancer, presents to the hospital because of a history of syncope. CT of his brain was unremarkable for any acute lesions. Troponin levels were found to be elevated. Patient was seen and advised by the cardiology team, who felt that the patient would best be transferred to another institution for evaluation with cardiac cath, possible coronary intervention, of possible need for electrophysiology consultation. The patient will now be transferred to [facility] for further management. cc: Adolfo Flores MD
--- NOTE | 2018-05-05 17:31 | Carotid Study ---
DATE: 05/02/2018 PROCEDURE: Carotid duplex imaging. REFERRING PHYSICIAN: Dr. Block INTERPRETING PHYSICIAN: Lauri Hackett MD TECH: Salma INDICATIONS: Syncope with history of stenosis. Exam for comparison 01/19/2017. OBSERVED DATA RIGHT LEFT Brachial Blood Pressure Carotid Pulse Bruits: Carotid/Sub DIAGRAM OF ULTRASOUND IMAGING R L RIGHT INT EXT INT EXT LEFT Mathew (cm/s) Mathew (cm/s) Subclavian 83/0 Subclavian 203/3 CCA Proximal 118/8 CCA Proximal 85/12 CCA Distal 75/11 CCA Distal 103/9 Bulb 285/31 Bulb 179/15 ICA Proximal 167/35 ICA Proximal 137/22 ICA Mid 130/24 ICA Mid 136/22 ICA Distal 71/19 ICA Distal 73/16 ECA 354/0 ECA 204/8 Vertebral 41/11 antegrade Vertebral 63/14 antegrade ICA/CCA Ratio 1.41 ICA/CCA Ratio 1.32 % Stenosis 80%-99% % Stenosis 60%-79% IMPRESSION: On today's study, there is again noted atherosclerotic changes of the bilateral carotid artery system. The velocities have progressed showing more significant stenosis on today's exam. On the right, there is atherosclerosis throughout the common but a broad based heterogeneous plaque in the carotid bulb extending to the proximal internal carotid artery that would correlate to an 80%-99% lesion here. On the left, the vessel is somewhat tortuous but there is again a broad based plaque noted in the carotid bulb and proximal internal carotid artery that would correlate to a 60%-79% lesion. SUMMARY: Progression of the disease from prior study, now corresponding to a critical lesion on the right and a severe stenosis on the left. Would recommend vascular surgery evaluation. Preliminary report was given. cc: Lauri Hackett MD
== END 2018-05-03 15:55 | disposition short-term general hospital (02) ==
LOC: SUPCPDRO → ED 09:02 → SUATTDRO 16:12 → 3N 16:12 → INTOOBSV 16:12 → 3S 20:24
PROVIDERS: ADMIT Internal Medicine; ATTEND Internal Medicine
CPT/HCPCS: 36415; 70450; 71020; 71046; 73502; 80053; 80061; 82550; 82553; 82948; 83036; 83721; 83735; 83880; 84443; 84484; 85025; 85610; 85730; 93005; 93306; 93880; 96372; 96374; 96375; 99285; A9270; G0378; J1650; J3475; J7030; XXXXX

== ENCOUNTER 2018-10-25 17:49 | Inpatient (IN) ==
--- NOTE | 2018-10-25 19:33 | PROVIDER DOCUMENTATION ---
HPI-General Adult - General Chief Complaint: Fatigue Stated Complaint: ANEMIA,IN KIDNEY FAILURE Time Seen by Provider: 10/25/18 19:07 Source: patient, family Allergies/Adverse Reactions: Patient Allergies Allergy/AdvReac Type Severity Reaction Status Date / Time simvastatin [From Zocor] Allergy "Protein Verified 05/02/18 13:10 weeping out of the muscle" per patient. Home Medications: Home Medication List Medication Instructions Recorded Confirmed Last Taken Type Allopurinol 300 mg PO DAILY 08/03/14 05/02/18 05/01/18 History Alprazolam [Xanax] 0.25 mg PO QHS 08/03/14 05/02/18 05/01/18 History Aspirin 81 mg PO DAILY 08/03/14 05/02/18 05/01/18 History Atorvastatin Calcium [Lipitor] 40 mg PO QHS 08/03/14 05/02/18 05/01/18 History Glipizide E.r. [Glucotrol Xl] 5 mg PO DAILY 08/03/14 05/02/18 05/01/18 History Terazosin [Hytrin] 1 tab PO DAILY 08/22/14 05/02/18 05/01/18 History Valsartan 320 mg PO DAILY 08/05/17 05/02/18 05/01/18 History Hydrocodone/APAP 7.5 mg/325 mg 1 each PO Q4H PRN #12 tablet 08/20/17 05/02/18 05/01/18 Rx [[place]-7.5] Metoprolol [Lopressor] 25 mg PO Q6H tablet 05/03/18 Unknown Rx Nitroglycerin [Nitroglycerin 0.4 1 each TD DAILY patch.td24 05/03/18 Unknown Rx mg/Hr Patch] Ondansetron [Zofran] 4 mg IV Q4H PRN PRN vial 05/03/18 Unknown Rx - History of Present Illness -Gen Adult Nature of Presenting Problems: reports that he was sent from his doctor officer for kidney failure, severe anemia. pt reports on thursday, he has been feeling tired, fever, chills. coming to seehis doctortoday. got blood drawn, then called back due to abn level. history of right sided cva, colon cancer, kideney failure. no n/v, abd pain. Review of Systems - Adult - REVIEW OF SYSTEMS - ADULT Constitutional: reports: no symptoms reported Eyes: reports: no symptoms reported Ears, Nose, Mouth & Throat: reports: no symptoms reported Cardiovascular: reports: no symptoms reported Respiratory: reports: no symptoms reported Gastrointestinal: reports: no symptoms reported Genitourinary: reports: no symptoms reported Musculoskeletal: reports: no symptoms reported Integumentary: reports: no symptoms reported Neurological: reports: no symptoms reported Psychiatric: reports: no symptoms reported Endocrine: reports: no symptoms reported Hematologic/Lymphatic: reports: no symptoms reported Allergic/Immunologic: reports: no symptoms reported All Other Systems: Reviewed and Negative Past History - Adult - PAST MEDICAL HISTORY-ADULT Review of Records: reports: Old Records Reviewed, Nursing Assessment Review, Medications Reviewed, Social history reviewed & non-contributory. Major Childhood Illnesses: reports: denies history Cardiovascular: reports: HTN, hyperlipidemia Respiratory: reports: denies history Gastrointestinal: reports: cancer (colon) Obstetrical/Gynecological: reports: denies history Genitourinary: reports: kidney stones Musculoskeletal: reports: denies history Neurological: reports: CVA Endocrine/Immune: reports: Diabetes Other Conditions: reports: denies history - PRIOR SURGERIES/PROCEDURES Surgical/Procedure History: reports: CABG, tonsillectomy, orthopedic (extremity) (R knee), other (bypass Sx, colon Sx) - IMMUNIZATION STATUS Childhood Immunizations: UTD Flu Vaccine: UTD - FAMILY HISTORY Family History: reviewed, not pertinent - SOCIAL HISTORY Smoking: denies Substance Use: none/never Alcohol Use Frequency: never Living Situation: family Physical Exam-General - PHYSICAL EXAM-ADULT Initial Vital Signs Reviewed: Yes - CONSTITUTIONAL General Appearance: appears well, alert, no apparent distress - EYES Eyes: PERRL/EOMI, pink conjunctivae - HEAD, EARS, NOSE, MOUTH & THROAT HENMT: normocephalic/atraumatic, moist mucous membranes, normal ENT inspection, other (impaired hearing, has hearing aid) - NECK Neck: non-tender, full range of motion, supple - RESPIRATORY Respiratory: chest non-tender, lungs clear, normal breath sounds - CARDIOVASCULAR Cardiovascular: systolic murmur, other (jvd) - GASTROINTESTINAL (ABDOMEN) Abdominal Exam: normal bowel sounds, non tender, soft - MUSCULOSKELETAL Back Exam: normal inspection, no CVA tenderness, no vertebral tenderness Extremity: swelling (b/l 1+), other (right side weakness) Peripheral Pulses: radial (R): 2+, radial (L): 2+, dorsalis-pedis (R): 2+, dorsalis-pedis (L): 2+ - SKIN Integumentary: normal color, normal turgor, warm/dry - NEUROLOGIC Neurologic: grossly normal, no motor/sensory deficits - PSYCHIATRIC Psych/Mental Status: oriented x 3 Progress - PLAN OF CARE/RESULTS Progress/Plan/Lab Results: Vital Signs - 8 hr 10/25/18 18:21 Temperature 98.9 F Pulse Rate 60 Respiratory Rate 17 Blood Pressure 160/67 O2 Sat by Pulse Oximetry 95 Orders Category Date Time Status CBC WITH ELECTRONIC DIFF [HEME] Stat Lab 10/25/18 19:14 Uncollected CMP [COMPREHENSIVE METABOLIC PANEL] [CHEM] Stat Lab 10/25/18 19:14 Uncollected URINALYSIS W/POSS RFLX CULT [URINALYSIS] Stat Lab 10/25/18 19:14 Uncollected Result Diagrams: 10/25/18 20:00 10/25/18 20:00 - EKG 1 Time of EKG reading by physician:: 21:34 EKG Read and Signed by:: Ivelisse Sanz EKG Interpretation (*Must complete 3 of following elements*): Abnormal Rate: 63 (atrial-sensed ventricular paced-rhythm) Prior EKG Comparison: unchanged from prior - CONSULTS/PCP/HOSPITALIST Notification #1 *Consult/PCP/Hospitalist*: dr. Bradley Time Discussed: 21:56 Consult Disposition: Admit Departure - Departure Date of Disposition Decision: 10/25/18 Time of Disposition Decision: 21:39 DIAGNOSIS: CHF exacerbation, Elevated troponin Disposition: ADMITTED INPATIENT 09 Certified Medical Emergency: Emergent Condition: Stable Referrals and Follow-Ups: Blayne Reyes MD [Primary Care Provider] - - Critical Care Note This patient required my direct & personal management of CC.: No Attestation - Physician/ FÁTIMA Attestation The physician spent face to face time with patient:: Yes Advanced Practice Provider documentation review:: Supervising physician onsite and consulted in the evaluation and care of this patient. The physician did have a face to face encounter with the patient.
[2018-10-25] MEDS ORDERED: NS 1,000 ML IV ONE (20:30)
[2018-10-25 20:46] LABS: URINE SOURCE CLEAN CATCH
[2018-10-25 20:51] LABS: BASO# 0.01 X1000 (0.0-0.2); BASO% 0.2 % (0.0-0.8); EOS# 0.05 X1000 (0.0-0.7); EOS% 1.1 % (0.0-10.0); HEMOGLOBIN 8.3 g/dL (14.0-18.0); LYMPH# 0.52 X1000 (1.2-3.4); LYMPH% 11.4 % (20.5-51.1); MCHC 31.9 g/dL (33-37); MCV 93.9 FL (81-99); MONO# 0.62 X1000 (0.11-0.59); MONO% 13.6 % (1.7-9.3); MPV 11.6 FL (7.4-10.4); NEUT# 3.37 X1000 (1.4-6.5); NEUT% 73.7 % (42.2-75.2); PLT 120 X1000 (130-400); RBC 2.77 XMIL (4.7-6.1); RDW 15.1 % (11.5-14.5); WBC 4.57 X1000 (4.8-10.8)
[2018-10-25 20:52] LABS: BILIRUBIN URINE NEGATIVE (NEGATIVE); BLOOD URINE SMALL (NEGATIVE); COLOR YELLOW; GLUCOSE URINE NEGATIVE (NEGATIVE); KETONE URINE NEGATIVE (NEGATIVE); LEUKOCYTES URINE NEGATIVE (NEGATIVE); NITRITE URINE NEGATIVE (NEGATIVE); PROTEIN URINE 70 mg/dL (NEGATIVE); SP GRAVITY URINE 1.015; TURBIDITY URINE CLEAR (CLEAR); UROBILINOGEN URINE NORMAL (NORMAL)
[2018-10-25 20:53] LABS: UR EPITHELIAL CELLS <10 /HPF (<10); URINE BACTERIA NEGATIVE /HPF; URINE RBC <10 /HPF (<10); URINE WBC <10 /HPF (<10)
[2018-10-25 20:56] LABS: INR 1.04; PROTIME 14.4 Seconds (11.0-16.0); PTT 28.2 Seconds (22.3-41.8)
--- NOTE | 2018-10-25 21:00 | Diag Imaging Result Doc PS360 ---
EXAM: CHEST-2 VIEWS INDICATION: weakness, anemia TECHNIQUE: 3 views COMPARISON: 05/02/2018 FINDINGS: The lungs are grossly clear. There is no discrete pleural fluid collection or pneumothorax. There is a stable asymmetric/defibrillator and stable CABG changes. The cardiomediastinal silhouette and central vasculature are grossly unremarkable, otherwise. IMPRESSION: No evidence of acute pathology by plain radiograph. Electronically signed by Kris Ferreira 10/25/2018 8:58 PM
[2018-10-25 21:19] LABS: ALB/GLOB RATIO 1.9; ALBUMIN 3.7 g/dL (3.5-5.0); CALCIUM 8.8 mg/dL (8.8-10.2); CREATININE 2.2 mg/dL (0.7-1.2); POTASSIUM 4.7 mmol/L (3.5-5.1); TOTAL BILIRUBIN 0.52 mg/dL (0.20-1.00); TOTAL PROTEIN 5.7 g/dL (6.3-8.3)
[2018-10-25] MEDS ORDERED: LASIX IV ONE (21:37)
[2018-10-26] MEDS ORDERED: ZOFRAN IV PRN (02:24)
[2018-10-26] MEDS: ELIQUIS PO SCH ×3 (04:00→21:32)
[2018-10-26] MEDS: TYLENOL PO PRN (04:08)
[2018-10-26] MEDS: DUONEB (A & A) INH SCH ×4 (05:34→22:50)
--- NOTE | 2018-10-26 06:38 | HISTORY AND PHYSICAL ---
REASON FOR ADMISSION: Increasing fatigue and shortness of breath for the last 1 week and 3-day history of chills and rigors. HISTORY OF PRESENT ILLNESS: Mr. Carlos Michel is an 83-year-old man with past medical history of gout, renal artery stenosis status post stent in 2018, coronary artery disease status post CABG, colon cancer, status post colectomy, prior peptic ulcer disease, BPH, CKD stage 3, NSTEMI in April of 2018, atrial fibrillation, type 2 diabetes, hypopituitarism, hypertension and vertebral fracture from L4-L5, and prior CVA with right sided hemiparesis. About a week ago, his endurance and energy level had started plummeting. Five days later, he developed severe rigors and subjective fever to the point that the following day he was still aching from the intense rigors. He denies any cough, urinary symptoms, change in his urine or stool color. No diarrhea, nausea or vomiting. They came in today to see his family physician on account of these symptoms and blood work was drawn. He was then contacted to go to the ER, and was told that his renal function had gotten worse. The patient denies any change in his urinary output. No GI complaints. No PND or orthopnea. No chest pain. No palpitations or lightheadedness. No abdominal distention or worsening lower extremity swelling. No new neurological findings. He says his appetite has gone down hill, and he just feels "weak and lethargic". No bleeding from any orifice. REVIEW OF SYSTEMS: A 12 system review was done. Positive findings per HPI. ALLERGIES: Simvastatin. MEDICATIONS: Home medications are yet to be reconciled at this time. His tells me he is still on allopurinol, atorvastatin, Xanax, aspirin, glipizide, terazosin, metoprolol, and nitroglycerin. The patient had been on Entresto several months ago which he said made him feel terrible. Since he has been off of it, he had been doing well up until the incident on Thursday. PAST SURGICAL HISTORY: He has had a TURP. He has had a renal stent placed. Pacemaker placement. Colectomy. CABG. Tonsillectomy. Uvuloplasty. FAMILY HISTORY: No heart disease or type 2 diabetes in first-degree relatives. SOCIAL HISTORY: and lives with . Does not smoke, drink, or use illicit drugs. LABORATORY DATA: White count 4000 down from 6000 in April. Hemoglobin and hematocrit 8 and 26. Hemoglobin is down from 8.9 in [place]. Platelet count is 120,000 down from 164 in [place]. Differential grossly unremarkable. BUN is 40 and creatinine 2.2 which is essentially unchanged. Glucose 126. AST 57, ALT 191, alkaline phosphatase 239 and bilirubin is normal. All these prior 3 indices are all elevated. CK is normal. [place] 0[place] [address] up from 1600 in April. PTT is normal. Urinalysis shows 70 protein. Small blood. Chest film does not show any increased vascular markings. Normal cardiac silhouette. EKG just shows paced rhythm. PHYSICAL EXAMINATION: VITAL SIGNS: Blood pressure 140/67, heart rate 60, respirations 17, and temperature 98.9, 95% on room air. Chronically ill, elderly man, not in acute distress. He is alert and oriented x3. Normal mood. He has a somewhat sad affect, and depressed mood. HEENT: Head is normocephalic, atraumatic. Eyes: JESSICA, EOMI. He is anicteric but pale. ENT and oropharynx exam is grossly normal. No sinusitis. NECK: Supple. No JVD or carotid bruit. CHEST: Clear on auscultation with good air entry in both lung newell. CARDIOVASCULAR: First and second heart sounds are heard. There is a 2/6 ejection systolic murmur in the aortic area radiating to the neck. Rhythm is regular. ABDOMEN: Protuberant, soft, and nontender. No mass or organomegaly. Bowel sounds are normal. RECTAL: Deferred at this time. EXTREMITIES: Patient has had good distal pulse volumes symmetrical regular. Patient has mild trace edema in lower extremities. No clubbing or peripheral cyanosis. NEUROLOGICAL: Patient has 1 to 2/5 power of the entire right side. He has had a flexion contracture of the elbow and digits of his hand. The patient has evidence of foot drop in the right lower extremity. SKIN: Intact. No breakdown, lesions, or erythema. It is pale. MUSCULOSKELETAL: See above. Otherwise, grossly normal. ASSESSMENT: 1. Pancytopenia. 2. Abnormal LFT's and transaminases. Query passive congestion versus new hepatic disease of known undetermined duration. 3. Stage IV CKD i.e. progressive CKD. 4. Atrial fibrillation. Stable. 5. Coronary artery disease in the presence of abnormal troponin's probably secondary to myocardial leak and the renal failure. 6. Chronic diastolic heart failure stable. Elevated proBNP secondary to renal failure. 7. Hypertensive heart disease. 8. Type 2 diabetes. 9. Gout. 10. Pancytopenia could be drug induced versus primary bone marrow disorder versus secondary renal effects. 11. We will consult nephrology to fine tune patient's renal status. He says his sr. payroll processor is in [place], however, it would be prudent, now that he is at CKD stage 4, to at least get him treatment for possible renal induced disorders i.e. hyperphosphatemia and potentially vitamin D disorders corrected by sr. payroll processor. The elevated troponin's could be from myonecrosis seen in CHF and compounded by the fact that he has renal failure. For now nothing to be done, maybe take an aspirin and do serial enzymes. May call Dr. Clemons his rpg programmer for further input. 12. Patient's transaminases and alkaline phosphatase are elevated which showed the patient may have a primary liver disorder. We will order abdominal sonogram to look at the liver architecture. His chills are a little worrisome. Although unlikely, it is possible he may have had a transient cholangitis. Blood cultures ordered. The patient's pancytopenia could be elicited medication induced or primary bone marrow disorder, or secondary renal disease or some other etiology. Consult gluer machine operator to see if anemia workup was ordered. For now, we will hold off on any potentially nephrotoxic hepatotoxic bone marrow toxic medications unless absolutely needed. cc: Sophie De Oliveira MD
--- NOTE | 2018-10-26 07:20 | EKG Report ---
Test Performed on : 10/25/2018 9:34:03 PM Test Reason : weakness Blood Pressure : / mmHG Vent. Rate : 063 BPM Atrial Rate : 063 BPM P-R Int : 122 ms QRS Dur : 108 ms QT Int : 470 ms P-R-T Axes : 016 -43 097 degrees QTc Int : 480 ms Atrial-sensed ventricular-paced rhythm Abnormal ECG When compared with ECG of 02-MAY-2018 15:37, Electronic ventricular pacemaker has replaced Electronic atrial pacemaker Unconfirmed Result
--- NOTE | 2018-10-26 08:19 | Diag Imaging Result Doc PS360 ---
CT THORAX W/O CONTRAST - 10/26/2018 INDICATION: possible ILD dsypnea COMPARISON: Chest x-ray 10/25/2018 FINDINGS: There is no evidence of interstitial lung disease. There are sternotomy changes. Biventricular pacemaker in good position. Heart size is top normal. No pericardial effusion. There are several small gallstones in the gallbladder. There is also severe left hydronephrosis. There is a stent in the right renal artery origin, and possibly a stent in the left one as well. There is some interstitial pulmonary edema in the lung bases. There are trace bilateral pleural effusions. Airways are clear. There are moderate degenerative changes of the spine. No acute or suspicious bony lesion. IMPRESSION: 1. Mild cardiomegaly. Trace interstitial pulmonary edema in the lung bases. Trace bilateral pleural effusions. 2. Severe left hydronephrosis. 3. Several small gallstones in the gallbladder. This exam was performed using automated exposure control, adjustment of mA or kV according to patient size, and/or use of iterative reconstruction technique Electronically signed by Isac Sheppard 10/26/2018 8:17 AM
--- NOTE | 2018-10-26 08:52 | Diag Imaging Result Doc PS360 ---
EXAM: US ABDOMEN-COMPLETE 10/26/2018 HISTORY: abn LFTs TECHNIQUE: Abdominal ultrasound COMMENT: The liver is slightly hyperechoic. There is antegrade flow in the portal vein. The aorta and inferior vena cava are not well demonstrated. The pancreas is not well demonstrated. The gallbladder is slightly distended to 9.9 cm. There is some apparent sediment and stones within the gallbladder. There is no sonographic Armenta sign. There is no evidence of para cholecystic fluid. The common bile duct is not distended measuring less than 6 mm. The spleen is not enlarged. There is marked left hydronephrosis with a resistive index of 0.75. The right kidney has multiple cysts the largest measuring 2 cm. Compared to the previous examination of 08/04/2017 the findings in the left kidney were present previously. IMPRESSION: Hepatic steatosis. Cholelithiasis with sludge. Chronic left hydronephrosis. Electronically signed by Tung Morales 10/26/2018 8:49 AM
--- NOTE | 2018-10-26 09:06 | EKG Report ---
Test Performed on : 10/26/2018 08:46:32 AM Test Reason : non ST UT/prior CABG Blood Pressure : / mmHG Vent. Rate : 061 BPM Atrial Rate : 061 BPM P-R Int : 096 ms QRS Dur : 148 ms QT Int : 510 ms P-R-T Axes : 023 -47 101 degrees QTc Int : 513 ms Atrial-sensed ventricular-paced rhythm Abnormal ECG When compared with ECG of 25-OCT-2018 21:34, (Unconfirmed) Vent. rate has decreased BY 2 BPM Confirmed by Nate Root MD ([id number]) on 10/26/2018 9:27:52 PM
[2018-10-26 09:26] LABS: BASO# 0.01 X1000 (0.0-0.2); BASO% 0.2 % (0.0-0.8); EOS# 0.05 X1000 (0.0-0.7); HEMATOCRIT 27.1 % (42.0-52.0); HEMOGLOBIN 8.7 g/dL (14.0-18.0); LYMPH# 0.76 X1000 (1.2-3.4); LYMPH% 15.3 % (20.5-51.1); MCH 29.9 PG (27-31); MCHC 32.1 g/dL (33-37); MCV 93.1 FL (81-99); MPV 11.7 FL (7.4-10.4); NEUT# 3.56 X1000 (1.4-6.5); NEUT% 71.5 % (42.2-75.2); PLT 140 X1000 (130-400); RBC 2.91 XMIL (4.7-6.1); RETIC% 1.58 % (0.8-2.1); RETIC-HE 27.7 PG (28.2-36.6); WBC 4.98 X1000 (4.8-10.8)
[2018-10-26 09:35] LABS: HEMOGLOBIN A1C 5.8 % (4.8-6.0)
[2018-10-26 09:46] LABS: CREATININE 2.3 mg/dL (0.7-1.2); PHOSPHORUS 3.6 mg/dL (2.7-4.5); POTASSIUM 3.8 mmol/L (3.5-5.1)
[2018-10-26 11:40] LABS: TSH 3.92 uIUmL (0.27-4.20)
[2018-10-26 12:33] LABS: HEPATITIS PROFILE ACUTE SEE COMMENTS
[2018-10-26 12:37] LABS: AMYLASE 42 U/L (20-200); LIPASE 12 U/L (13-60)
--- NOTE | 2018-10-26 13:46 | CARDIOLOGY CONSULTATION ---
DATE: 10/26/2018 HISTORY: An 83-year-old, male presenting with the chief complaint of chills, weakness, fatigue, shortness of breath. DESCRIPTION: The patient presented to the ER on October 25 at about 7 p.m. The patient had been feeling ill since October 22 when he developed a prolonged episode of shaking chills. Prior to that, he reported that for several months following his recent stent and pacemaker implantation, which took place in April of 2018, he had not been able to regain his full strength. A physician in [place] had been treating him for the kidney failure and also for his cardiac condition, Dr. Jones. He was put on Entresto which apparently did not help him much and after Entresto was removed from his regimen in August of this year, he felt somewhat better. He felt like things were starting to look up, up until the onset of the chills. Following the bout of chills, he had some discomfort in the right upper quadrant and eventually, over the course of the ensuing days, he continued to do poorly. He was getting somewhat short of breath and ended up coming to the ER. In the ER, they did a chest x-ray that showed no evidence of acute pathology. Pro BNP was elevated at 20,812. His troponin levels were found elevated at 0.323, 0.295, and 0.386 ng/mL and that raised concern for another bout of non-ST myocardial infarction. His EKG at 9:34 p.m. yesterday showed atrial sensed ventricular paced rhythm. The patient denies having any chest pain. He has been given diuretics and he has been diuresing overnight. This morning, he is just still feeling down but he is not having any pain anywhere. Of note, they did a CT scan of the chest this morning and it is reportedly indicating severe left hydronephrosis and possible gallstones in the gallbladder. An ultrasound of the abdomen has already been done that shows hepatic steatosis, cholelithiasis with sludge, and a chronic left hydronephrosis. PAST MEDICAL HISTORY: The patient's past history is positive for severe coronary heart disease, previous bypass surgery. A recent heart catheterization that was done in April of this year after an episode of syncope and elevation of cardiac enzymes found stenosis at the distal portion of the vein graft to the marginal system and it was successfully stented by Dr. Kris Herring. Of note, the patient had no chest pain. Following that, he received an upgrade on his pacemaker device to an AICD with biventricular capabilities. The patient has chronic kidney disease stage 3. 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 The etiology of the stroke was unclear. He has prostate hypertrophy, hypertension, diabetes mellitus type 2, and lumbar stenosis and fracture. PAST SURGICAL HISTORY: He has had colectomy, TURP, initially a pacemaker implantation that was upgraded recently to a biventricular ICD. He has had tonsillectomy, uvuloplasty, renal artery stent. SOCIAL HISTORY: He is . Retired from [employer]. He lives with his . He is not a smoker, not a drinker. FAMILY HISTORY: Noncontributory. ALLERGIES: Simvastatin. HOME MEDICATIONS: He is on terazosin 1 tablet daily, Zantac 150 daily, nitroglycerin patch, metoprolol 25 every 6 hours, levothyroxine 50 mcg daily, glipizide 5 mg daily, furosemide 40 mg daily, ferrous gluconate 324 in the morning, Colace 100 mg daily, clopidogrel 75 in the morning, atorvastatin 5 mg at bedtime, aspirin 81 mg daily, Xanax 0.25 mg at bedtime, allopurinol 200 daily. He could not tolerate simvastatin. REVIEW OF SYSTEMS: As I said, over the course of the past few months and since his stent and pacemaker upgrade, he has not been back to his normal self. PHYSICAL EXAMINATION: Blood pressure is 140/55, pulse 75, temperature 98.9, and respirations 18. He is awake, alert, oriented, in no distress. HEENT: He has a prominent pulsating right common carotid artery on the right side. His jugular veins are not distended. Chest shows diminished breath sounds with some bilateral crepitation. Heart sounds are regular, rhythmic. Soft systolic murmur over the left sternal border. Abdomen is soft and slightly tender over the right upper quadrant. No masses noted. Extremities showed decreased pulses. No peripheral edema. Neurological Examination: Nonfocal. Moves 4 extremities. Decreased pulses. No obvious edema. He has right-sided hemiplegia with profound weakness of the right arm and moderate weakness of the right leg. His left side is fully functional. Mentation is clear. Follows commands. LABORATORY WORK: Hemoglobin 8.7, hematocrit 27.1, white cell count 4980. PT and PTT were normal. Sodium 139, potassium 3.8, BUN 37, creatinine 2.3, hemoglobin A1c 5.8, calcium 9.0, magnesium 2.0. Iron 13 mcg/dL, ferritin 321. IMPRESSION: 1. Patient who comes in basically feeling poorly after an episode of shaking chills. This could be an indication of infection either coming from biliary tract or urinary tract. He does have imaging evidence of cholelithiasis/sludge in the gallbladder and he does have an abnormal left kidney with hydronephrosis. 2. Abnormal liver function tests. This liver function test suggests that he may have actually passed the stones. His alkaline phosphatase is elevated. ALT and AST are also elevated. 3. He also has, in addition, iron deficiency anemia. His iron level is low. 4. Chronic kidney disease. 5. Non ST elevation myocardial infarction (?). The patient has chronic kidney disease and his troponin elevation may be a chronic feature. He is not having chest pain. 6. SEVERE ASHD: He has previous coronary artery bypass surgery and a recent stent to the SVG attached to marginal system of the left circumflex. By my own interpretation of the angiogram from April of 2018, the results were excellent and it would be quite unlikely for him to have an acute closure of that stent at this time. 7. History of upgrade of his DDD pacemaker to a biventricular AICD pacemaker in April of 2018. 8. He probably had atrial fibrillation and sick sinus syndrome in the past. This seems to be under control right now. RECOMMENDATIONS: At this time, I would suggest to consult with general surgery or gastroenterology regarding the abnormalities noted at the level of the gallbladder and liver function tests to determine whether or not he may have actually passed a gallstone. I would also suggest to contact Dr. Ram from urology to give an opinion regarding the hydronephrosis. Cardiac-reid, I do not feel any urgency to do any cardiac testing since his presentation is not consistent with acute myocardial ischemia. I will be glad to review an echocardiogram and give further advice after the other consultants have given or rendered an opinion. Please call me back. cc: Jeremiah Gutierrez MD [facility]
--- NOTE | 2018-10-26 13:58 | NEPHROLOGY CONSULTATION ---
DATE: 10/26/2018 REASON FOR CONSULTATION: Chronic kidney disease. HISTORY OF PRESENT ILLNESS: Mr. Michel is an 83-year-old white male who was admitted to the hospital after direction from his primary care doctor. He states over the last weekend he had what he described as seizures though he did not lose consciousness. He states he was shaking violently and associated with chills. He states his temperature was measured several times and always normal. Otherwise perhaps he had swelling in the lower extremities. No chest pain or palpitations. No cough or sputum. No nausea, vomiting, diarrhea, etc. He saw his primary care doctor on Thursday who collected labs and then directed him to the hospital because of kidney failure and anemia. PAST MEDICAL HISTORY: Coronary artery disease, history of bypass grafting, history of CVA, hypertension, BPH, peptic ulcer disease, history of colon cancer. He has known chronic kidney disease stage 3 with baseline creatinine ranging from 1.9 to 2.2 over the last 1 year. Right renal artery stent earlier this year in the context of acute coronary syndrome. HOME MEDICATIONS: Include atorvastatin, aspirin, alprazolam, allopurinol, glipizide, terazosin, metoprolol, docusate, ferrous gluconate, furosemide, hydrocodone, ranitidine, levothyroxine, clopidogrel. ALLERGIES: Simvastatin. SOCIAL HISTORY: , lives with his . No alcohol or tobacco. REVIEW OF SYSTEMS: Otherwise negative. PHYSICAL EXAMINATION: Vital Signs: Blood pressure 140/55, heart rate 75, respirations 16, temperature 99.9 degrees. General: Elderly man, lying in bed. No acute distress. Skin: Warm and dry. Ecchymoses are present. Conjunctivae are pink and moist. Pupils equal, round. Oropharynx clear. Normal tongue normal teeth. Neck: Supple. Trachea is midline. Neck vein distention with hepatojugular reflux was present. PMI not palpable. Cardiovascular: Regular rate and rhythm. No gallops murmurs rubs. Lungs: Have equal excursion. Equal breath sounds. No crackles or wheezes. Abdomen: Soft, nontender. Bowel sounds present. No bruits or masses. No organomegaly. Extremities: Have trace edema. No clubbing or cyanosis. IMPRESSION/PLAN: Chronic kidney disease. Presumably, ischemic nephropathy. We will check renal ultrasound. He had minimal urine on his initial dipstick. We will collect a protein to creatinine ratio. I have reviewed his medications and no changes are required. I agree with his blood pressure regimen. Once his acute illness is over, we may attempt to transition over to an angiotensin receptor connie. Electrolytes/acid base in target. B12 and folate are normal. We will check iron stores. cc: Sidney Lopes MD
--- NOTE | 2018-10-26 17:18 | PROGRESS NOTE ---
DATE: 10/26/2018 SUBJECTIVE: 1. He is a patient of Dr. Blayne Reyes, who came in with increased fatigue, shortness of breath for the last week, 3-day history of fever and rigors. He is an 83-year-old with a past medical history of gout, renal artery stenosis status post stent in 2018, coronary artery disease status post CABG, colon cancer status post colectomy, prior peptic ulcer disease, benign prostatic hypertrophy, chronic kidney disease stage 3, history of [id number] PA in April of 2018, atrial fibrillation, diabetes mellitus type 2, hypothyroidism, hypertension, vertebral fracture in L4-5, had a prior CVA on the right with right-sided hemiparesis. About a week ago his endurance and energy started plummeting. Five days later he developed severe rigors and subjective fever. He was having intense rigors. Denied any cough, urinary symptoms, change in the urine or stool color. No diarrhea, nausea, or vomiting. He came in to see his family physician and blood was drawn. Contacted the ER and told them that his renal function had gotten worse. Denied any change in urinary output from his memory. No GI complaints. So, admitted with pancytopenia, abnormal LFTs with transaminases elevated. Wondering whether it was congestive hepatopathy versus hepatic disease of unknown duration. 2. Stage 4 chronic kidney disease, progressive chronic kidney disease. 3. Atrial fibrillation. 4. Coronary artery disease. Abnormal troponins probably were secondary to myocardial or congestive heart failure and his renal failure. 5. Chronic diastolic heart failure, elevated proBNP secondary to renal failure. 6. Hypertension. 7. Diabetes mellitus type 2. 8. Gout. 9. Pancytopenia, which could be drug-induced versus primary bone marrow disorder. 10. Elevated transaminases. He reports that he is feeling better. OBJECTIVE: Vital signs: Today T-max was 99.9 degrees, afebrile, pulse 65, respirations 18, blood pressure 140/55. HEENT: Pupils are equal and round. Lungs: Clear in all lung newell. Cardiovascular: Regular rhythm and rate without murmur or S3. Abdomen: Soft. Skin: Warm and dry. LAB: From this morning, white count 4,980, hematocrit is 27 hemoglobin 8.7, platelet count 140,000. Sodium 139, potassium 3.8, chloride 103, bicarb 22, BUN 37, creatinine 2.3, yesterday it was 2.2. Transaminases yesterday, AST was 191, ALT 239, alkaline phosphatase was 250. Note, when he came in troponin was 0.386 and C-reactive protein was 71. Of note, he has an abdominal ultrasound that showed hepatic steatosis, cholelithiasis with sludge, chronic left hydronephrosis. ASSESSMENT AND PLAN: 1. Chronic kidney disease, presumed ischemic neuropathy. Renal ultrasound did not show hydronephrosis or obstruction. I am going to collect urine for urine creatinine ratio. Dr. Lopes is following. He agrees with the blood pressure regimen. May attempt to transition over to an angiotensin connie. 2. He does have evidence of cholelithiasis and sludge in the gallbladder and elevated liver functions, not sure of complete etiology. Continue to follow those. 3. Abnormal liver functions. He may have actually passed some renal stones. Alkaline phosphatase is elevated. AST is also elevated, so this may be related to his gallbladder. 4. He has an iron deficiency anemia. 5. Nonischemic myocardial infarction, elevated troponin. This may be from his chronic kidney disease. He is not having any chest pain. It does not appear that he is having active cardiac ischemia. 6. Previous coronary artery bypass graft, recent stent to the marginal system of the left circumflex. Cardiology has reviewed and feel that it is unlikely he had closure of his stent at this time. 7. Biventricular pacemaker in April of 2018. 8. History of chronic atrial fibrillation. Rate is controlled. REVIEW OF ORDERS: I do not see any change. He is on Eliquis 2.5 mg b.i.d. He received Lasix 60 mg IV yesterday. REVIEW OF LAB: No new lab today. We will check a Chem 22 again tomorrow with magnesium. We will check a T4, TSH, B12, and folate. It may be worthwhile to check some iron studies as well. cc: Shola Woo MD
[2018-10-26 22:24] LABS: URINE SOURCE CLEAN CATCH
[2018-10-26 22:33] LABS: BILIRUBIN URINE NEGATIVE (NEGATIVE); BLOOD URINE TRACE (NEGATIVE); COLOR YELLOW; GLUCOSE URINE NEGATIVE (NEGATIVE); KETONE URINE NEGATIVE (NEGATIVE); LEUKOCYTES URINE NEGATIVE (NEGATIVE); NITRITE URINE NEGATIVE (NEGATIVE); PROTEIN URINE 50 mg/dL (NEGATIVE); SP GRAVITY URINE 1.015; TURBIDITY URINE CLEAR (CLEAR); UR EPITHELIAL CELLS <10 /HPF (<10); URINE BACTERIA NEGATIVE /HPF; URINE RBC <10 /HPF (<10); URINE WBC <10 /HPF (<10); UROBILINOGEN URINE NORMAL (NORMAL)
--- NOTE | 2018-10-26 23:30 | ECHO REPORT ---
ORDER DATE: 10/26/2018 MEASUREMENTS: Septal thickness 1.2, left ventricular internal diameter in diastole 4.9, posterior wall thickness 1.1, left atrium 4.7, aortic root 3.6. SUMMARY: 1. Adequate quality study. 2. Fibrocalcific changes of trileaflet aortic valve demonstrated with reduced aortic valve leaflet mobility. Peak gradient across aortic valve is 24 mmHg with a mean gradient of 14 mmHg. Calculated aortic valve area by Doppler is 1.1 cm2. Limb planimetry appears reliable and demonstrates aortic valve area of 1.3 cm2. Moderate aortic stenosis is suggested. There is mild aortic regurgitation. Moderate mitral annular calcifications demonstrated. There is mild to moderate mitral regurgitation. Tricuspid and pulmonic valves are without evidence of structural abnormality with mild tricuspid regurgitation and trace pulmonic insufficiency. The estimated systolic PA pressure by Doppler is 55 mmHg, suggesting moderate pulmonary hypertension. Aortic root is normal in size. 3. Normal left ventricular chamber size with borderline concentric left hypertrophy is demonstrated. Estimated left ventricular ejection fraction approximately 45%. There is hypokinesis of the mid to apical septum. Doppler suggests grade 1 left ventricular diastolic dysfunction. Left atrium is moderately enlarged. Right atrium and right ventricle normal in size with normal right ventricular systolic function. Pacemaker lead is evident in right ventricle. 4. No pericardial effusion. 5. Inferior vena cava not well demonstrated. CONCLUSIONS: 1. Moderate calcific aortic stenosis with mild aortic regurgitation. 2. Moderate mitral annular calcification with [id number] mitral regurgitation. 3. Mild tricuspid regurgitation with moderate pulmonary hypertension by Doppler. 4. Borderline concentric left ventricular hypertrophy with estimated left ventricular ejection fraction 45%, with hypokinesis of the mid apical septum. 5. Grade 1 left ventricular diastolic dysfunction suggested. 6. Moderate left atrial enlargement. cc: MD Sophie Licona MD
--- NOTE | 2018-10-27 03:57 | HEMO/ONC CONSULTATION ---
DATE: 10/26/2018 REQUESTING PHYSICIAN: Dr. De Oliveira REASON FOR CONSULTATION: Pancytopenia. HISTORY OF PRESENT ILLNESS: Mr. Michel is a 83-year-old, male who presented to his primary care physician's office with severe rigors as well as decreased energy. His primary care physician sent him to the ER due to the patient being weak and lethargic while he was at the doctor's. They also did some labs that showed acute renal failure. The patient now has been admitted for further evaluation and treatment. They have consulted us due to the patient presented with pancytopenia. However, currently his white blood cell count and platelet count are within normal limits. The patient does report that he has a history of GI bleeding, previously and has required blood transfusions. Of note, he has elevated cardiac enzymes. He has extensive cardiac history as well. PAST MEDICAL HISTORY: 1. Renal artery stenosis. 2. Coronary artery disease status post CABG. 3. Peptic ulcer disease. 4. BPH. 5. CKD, stage III. 6. [id number] myocardial infarction (Non-STEMI) back in April. 7. Atrial fibrillation. 8. Type 2 diabetes mellitus. 9. Hypertension. 10. CVA with right-sided hemiparesis. 11. History of colon cancer status post colectomy. PAST SURGICAL HISTORY: 1. Positive for TURP. 2. Renal stent placement. 3. Pacemaker placement. 4. Colectomy. 5. CABG. 6. Tonsillectomy. 7. Uvuloplasty. SOCIAL HISTORY: The patient is and lives with his . He denies any alcohol, tobacco, or illicit drug use. FAMILY HISTORY: Negative for any heart disease or type 2 diabetes. Also negative for any cancer. PHYSICAL EXAMINATION: Vital Signs: Temperature 99.9 degrees, heart rate 75, respirations 18, blood pressure 140/55, O2 saturation 99% on room air. General: This is an elderly male lying in his hospital bed. He is in no acute distress. Head normocephalic. Atraumatic. Eyes: Pupils equal, round, reactive. Ears, nose, throat, neck, mouth: Oral mucosa is normal. Cardiovascular: S1, S2 heard. Respiratory: Chest is clear. Gastrointestinal: Abdomen is soft. Positive bowel sounds. Musculoskeletal: No obvious bony abnormalities. Extremities: He has some trace pedal edema. Neurologic: Patient is alert and oriented. LABS AND STUDIES: White blood cells, 4.9, hemoglobin 8.7, platelet count 140,000. Sodium 139, potassium 3.8, chloride 103, CO2 22, BUN 37, creatinine 2.3, glucose is 88. Bilirubin 0.5. AST, ALT are 57 and 191. Alkaline phosphatase is 239. LDH is 250. Vitamin B12 and folate were within normal limits. Iron is 13. ASSESSMENT/PLAN: 1. Pancytopenia. The patient is no longer pancytopenic but does still have anemia. We will complete his iron studies and also requests Hemoccult stool cards. He likely needs some IV iron which we can provide. 2. History of colon cancer status post colectomy. We will review the past records. Denies any weight loss currently. 3. Weakness with elevated cardiac enzymes. Cardiology is on board. 4. Rigors. Possible infection. He had a CT of the chest which was negative for any pneumonia. He does have gallstones in his gallbladder. He has also previously had an abdominal ultrasound which shows some sludge in his gallbladder. He also has chronic left hydronephrosis. Hepatic steatosis noted as well. Further workup by the primary team. 5. Acute renal failure on chronic kidney disease. Further management by the primary team. Monitor creatinine levels. 6. Abnormal LFTs. Looks like they are working up with hepatic panel. Follow up on results. I want to thank you for this consult. We will continue to follow along and adjust our treatment plan per the patient's hospital course. Dictated by MESHA Lama for Neli Rucker MD cc: Neli Rucker MD I have seen and examined the patient and I agree with the above note which reflects my history, physical, assessment and plan. Neli VERNON
[2018-10-27] MEDS: DUONEB (A & A) INH SCH ×4 (05:16→21:00)
--- NOTE | 2018-10-27 08:06 | NEPHROLOGY PROGRESS NOTE ---
DATE: 10/27/2018 TIME SEEN: 0630. SUBJECTIVE: Mr. Michel is resting quietly in bed. Head of the bed is elevated. He states that he is feeling much better. OBJECTIVE: VITAL SIGNS: His last temperature 99.3 degrees, blood pressure 140/53, heart rate is 76, respirations are 16. He is on room air, last recorded saturation 96%. He has had 240 in, he has had 500 out documented void with some urine in his urinal at this time. LABORATORY DATA: These are currently pending this a.m. Previous potassium of 3.8. Previous BUN of 37 with a creatinine of 2.3. Previous hemoglobin 8.7. IMAGING: The patient had a renal ultrasound a year ago indicating the right kidney measuring 11 with the left measuring 8.8. Noted that patient has chronic left hydronephrosis. Ultrasound on this visit indicates a chronic right hydronephrosis. PHYSICAL EXAMINATION: General: This is an 83-year-old elderly white male, resting quietly in bed. Head of the bed is elevated. No acute distress. Skin: Warm and dry. HEENT: Normocephalic, atraumatic. Conjunctiva is pale. He has JESSICA. Mucous membranes are dry. Neck: Supple. Trachea midline. No evidence of JVD. Cardiovascular: Regular rate and rhythm. He has a systolic murmur. Lungs: Clear to auscultation bilaterally. Equal excursion on room air. Abdomen: Large, round, soft, nontender. Positive bowel sounds. Genitourinary: Not inspected. Patient has been voiding with adequate amount documented. Extremities: Have no edema, no clubbing or cyanosis. Integumentary: No rashes or lesions evident. Neurological: Patient has a right-sided deficit noted to right upper extremity with minimal to the right lower. Does have positive lower extremity movement. Alert to person and to place and most recent events though forgetful in regards with previous medical histories. ASSESSMENT AND PLAN: 1. Chronic kidney disease stage 4. The patient is noted to have chronic right hydronephrosis. Left kidney measures 8.8 on previous ultrasounds. Right kidney now with right hydronephrosis. He is making adequate urine. He has a very thin echotexture on his renal ultrasounds. BUN and creatinine have remained stable. No indications for intervention. We will attempt to get patient's previous discharge summaries and x-ray reports and any surgical interventions from [facility] for the last 1 to 2 years. 2. Electrolytes and acid-base balance. These are acceptable. 3. Hemoglobin remains low at 8.7. His ferritin was 270. We are waiting on the TSat. 4. Elevated liver function tests. This is followed by the primary care. I would like to thank you for allowing us to follow with this patient. Dictated by MARIA FERNANDA Yeung for Sidney Lopes MD Face to face encounter, data reviewed, discussed with Jordan Restrepo on 10/27/18. I agree with the above assessment and plan of care. cc: MARIA FERNANDA Yeung MD [facility]
[2018-10-27 08:45] LABS: POTASSIUM 4.3 mmol/L (3.5-5.1)
[2018-10-27 08:46] LABS: ALB/GLOB RATIO 1.1; ALBUMIN 3.3 g/dL (3.5-5.0); CALCIUM 8.4 mg/dL (8.8-10.2); CREATININE 2.2 mg/dL (0.7-1.2); TOTAL BILIRUBIN 0.47 mg/dL (0.20-1.00); TOTAL PROTEIN 6.3 g/dL (6.3-8.3)
[2018-10-27] MEDS: ELIQUIS PO SCH ×2 (09:09→21:00)
[2018-10-27 09:40] LABS: T4 10.3 ug/dL (4.60-12.00); TSH 4.78 uIUmL (0.27-4.20)
[2018-10-27] MEDS: VENOFER 200 MG in NS 150 ML IV SCH (17:00)
--- NOTE | 2018-10-27 18:04 | PROGRESS NOTE ---
DATE: 10/27/2018 SUBJECTIVE: Mr. Michel says he is feeling better, breathing comfortably. He remains afebrile. OBJECTIVE: Temperature 98.1 degrees, pulse 82, respirations 18, blood pressure 108/45. Pupils are equal round. Lungs are clear in all lung newell. Cardiovascular: Regular rhythm and rate without murmur or S3. Abdomen is soft. Skin is warm and dry. ASSESSMENT AND PLAN: 1. Chronic kidney disease, stage 4. Patient is noted to have chronic right hydronephrosis. Left kidney measures 8.8 on previous ultrasounds. Right kidney, now with right hydronephrosis. Making adequate urine. Dr. Lopes following. Noted he had thin echotexture on his renal ultrasound. BUN and creatinine remained stable. No indications for intervention or dialysis at this point. They are trying to get records from [place]. 2. Electrolyte and acid-base balance are acceptable. 3. Hemoglobin is 8.7. Ferritin 270. 4. Elevated liver function test. Aware. 5. Pancytopenia, which has resolved, but Dr. Rucker involved looking at the anemia. MEDICATIONS: Eliquis 2.5 mg b.i.d. He was given some iron today. His home medications: We are holding his allopurinol and Xanax and aspirin, but I think we can start those back. He is on Plavix 75 mg a day. Colace 100 mg q.a.m. Ferrous gluconate 324 mg daily. The Lasix he was getting 40 mg a day. We will hold that. Let him have the Glucotrol, Tangent as needed, levothyroxine 50 mcg q.a.m., and Lopressor he was getting 25 mg q.6 h., Zantac 150 mg q.a.m., and Hytrin 1 tablet b.i.d. I will see if I can start back some of his home medications. cc: Shola Woo MD
[2018-10-27] MEDS: LOPRESSOR PO SCH (18:24)
[2018-10-27] MEDS ORDERED: XANAX PO SCH (21:00)
[2018-10-27] MEDS ORDERED: LIPITOR PO SCH (21:00)
[2018-10-27] MEDS: NORCO-5 PO SCH (21:00)
[2018-10-28] MEDS: LOPRESSOR PO SCH ×3 (00:30→12:18)
[2018-10-28] MEDS: DUONEB (A & A) INH SCH ×2 (05:03→10:33)
[2018-10-28] MEDS: TYLENOL PO PRN (05:19)
[2018-10-28 08:36] LABS: ALBUMIN 2.9 g/dL (3.5-5.0); CALCIUM 8.8 mg/dL (8.8-10.2); CREATININE 2.4 mg/dL (0.7-1.2); PHOSPHORUS 3.7 mg/dL (2.7-4.5); POTASSIUM 4.2 mmol/L (3.5-5.1)
[2018-10-28] MEDS: ELIQUIS PO SCH ×2 (08:45→08:53)
[2018-10-28] MEDS: NITROGLYCERIN 0.4 MG/HR PATCH TD SCH ×2 (08:46→08:57)
[2018-10-28] MEDS: VENOFER 200 MG in NS 150 ML IV SCH (08:51)
[2018-10-28] MEDS: NORCO-5 PO SCH ×2 (08:52→12:18)
[2018-10-28] MEDS ORDERED: ZYLOPRIM PO SCH (09:00)
[2018-10-28] MEDS ORDERED: FERGON PO SCH (09:00)
[2018-10-28] MEDS ORDERED: ASPIRIN PO SCH (09:00)
[2018-10-28] MEDS ORDERED: HYTRIN PO SCH (09:00)
[2018-10-28] MEDS ORDERED: ZANTAC PO SCH (09:00)
[2018-10-28] MEDS ORDERED: COLACE PO SCH (09:00)
[2018-10-28] MEDS ORDERED: PLAVIX PO SCH (09:00)
[2018-10-28] MEDS ORDERED: SYNTHROID PO SCH (09:00)
[2018-10-28] MEDS ORDERED: GLUCOTROL XL PO SCH (09:00)
--- NOTE | 2018-10-28 11:40 | DISCHARGE SUMMARY ---
ADMISSION DATE: 10/26/2018 DISCHARGE DATE: 10/28/2018 HISTORY OF PRESENT ILLNESS: This is a patient of Dr. Blayne Reyes. Came in with increased fatigue, shortness of breath for a week, a 3-day history of chills and rigors. This is an 83-year- old with a past medical history of gout, renal artery stenosis, status post stent in 2018, coronary artery disease, status post CABG, colon cancer, status post colectomy, prior peptic ulcer disease, benign prostatic hypertrophy, chronic kidney disease stage 3, non-ST elevated CT in April 2018, atrial fibrillation, diabetes mellitus type 2, hypothyroidism, hypertension, vertebral fracture in L4-5, prior CVA with right-sided hemiparesis. About a week ago, had felt his endurance and energy plummeting. Five days later, developed severe rigors and subjective fever, aching from intense rigors. He denies any cough, urinary symptoms, change in his urine or stool color. No diarrhea, nausea, or vomiting. He presented to the emergency room on 10/26/2018. He actually went to see his family physician and he was contacted to go to the emergency room, told his renal function had gotten worse. Denied any change in urine output. No GI complaints. No PND or orthopnea. No chest pain. No palpitations or lightheadedness. No abdominal distention or worsening of lower extremity swelling. Came to the emergency room. Admitted for pancytopenia, abnormal LFTs, elevated transaminases. He had what appeared to be stage 4 chronic kidney disease, atrial fibrillation which was stable, coronary artery disease. No sign of active ischemia. Did have mild elevation of troponin, diastolic heart failure which was stable, history of hypertension, diabetes, and wanted to workup the pancytopenia and the elevation in transaminases. HOSPITAL COURSE: Echocardiogram was done on 10/26/2018. 1. Moderate calcific aortic stenosis with mild aortic regurgitation. 2. Moderate mitral annular calcification. Mild to moderate mitral regurgitation. 3. Mild tricuspid regurgitation, moderate pulmonary hypertension. 4. Concentric left ventricular hypertrophy with estimated left ventricular ejection fraction of 45% and grade 1 left ventricular diastolic dysfunction and moderate left atrial enlargement. His chest CT done on 10/26/2018. 1. Mild cardiomegaly, trace interstitial pulmonary edema in the lung bases, trace bilateral pleural effusions. 2. Severe left hydronephrosis. 3. Several small gallstones in the gallbladder. Cardiology was consulted, Dr. Gutierrez. The patient had an episode of shaking chills. It could be coming from the biliary tract infection and sludge in the gallbladder. He did have abnormal kidney with hydronephrosis, abnormal liver functions. May actually have passed a gallbladder stone. His alkaline phosphatase was elevated. ALT and AST were elevated. He has underlying chronic kidney disease. Non-ST elevation myocardial infarction was a possibility. He has chronic kidney disease and troponin elevation may be secondary to chronic kidney disease. He has severe asymmetrical septal hypertrophic dystrophy. Previous coronary artery bypass surgery and recent stent to the CBG attached to the marginal system of the left circumflex. Dr. Gutierrez looked at the results of angiogram from April 2018. It was also excellent and is unlikely to have closure of that stent at this time. He has a history of an upgraded DDD pacemaker, biventricular AICD pacemaker in April 2018. Most likely, he has had atrial fibrillation and sick sinus syndrome in the past. His transaminases seemed to improve. Nephrology was asked to see. Dr. Lopes saw. Impression was chronic kidney disease, presumably ischemic nephropathy. Did not see any evidence for intervention at this time. The patient wanted to go home and on 10/28/2018, felt we could discharge him home. DISCHARGE MEDICATIONS: Zyloprim 300 mg a day, Xanax 0.25 mg at bedtime, Eliquis 2.5 mg b.i.d. which actually he has stopped. He is just on after aspirin and Plavix, so we will stop the Eliquis. Aspirin 81 mg a day, Lipitor 40 mg a day, Colace 100 mg daily, ferrous sulfate 240 mg q.a.m., glipizide XL 5 mg daily. He was taking hydrocodone 5 mg as needed 4 times a day. He did get some iron sucrose while he was here IV, Synthroid 50 mcg a day, Lopressor 25 mg at bedtime, Zantac 150 mg daily, and Hytrin 5 mg daily. He will follow up with his primary care doctor and Dr. Lopes. cc: Shola Woo MD
[2018-10-28 12:43] VITALS: BP 119/46
--- NOTE | 2018-10-28 13:31 | NEPHROLOGY PROGRESS NOTE ---
DATE: 10/28/2018 SUBJECTIVE: He is anticipating discharge. No new complaints today. OBJECTIVE: Vital Signs: Blood pressure 119/46, heart rate 70, respirations 19, afebrile. General: No acute distress. Skin is warm and dry. HEENT: Conjunctivae are pink. Neck: Neck veins are not distended. Heart: Regular. Lungs: Equal. Abdomen: Soft. Bowel sounds present. Extremities: Minimal edema. IMPRESSION: Chronic kidney disease stage IV. Electrolytes, acid base, volume status, hypertension all in target. He follows with Dr. Wood so we will allow him to arrange followup in [place] with Dr. Wood. No changes from my perspective. cc: Sidney Lopes MD
== END 2018-10-28 13:25 | disposition home or self-care (01) | DRG 809 ==
LOC: ED 17:49 → SUATTDRO 10-26 01:10 → 3N 10-26 01:10
PROVIDERS: ATTEND Emergency Medicine
CPT/HCPCS: 71020; 71046; 71250; 76700; 80048; 80053; 80069; 80074; 81001; 82150; 82550; 82607; 82728; 82746; 82948; 83036; 83540; 83550; 83615; 83690; 83735; 83880; 84100; 84436; 84443; 84484; 85025; 85045; 85610; 85651; 85730; 86140; 87040; 93005; 93010; 93306; 94640; 94761; A9270; J1756; J1940; J7030; XXXXX